=== PATIENT | female | born 1980 | race Caucasian/White ===

== ENCOUNTER 2019-12-07 14:29 | Inpatient (IN) | payer OTHER ==
[~2019-12-07] VITALS: Ht 165.1 cm; Wt 62.3 kg
[2019-12-07 14:41] VITALS: BP 101/68
[2019-12-07 15:07] LABS: BASO % 0.7 % (0.0-1.0); EOS % 0.7 % (1.0-4.0); HEMATOCRIT 40.3 % (37.0-47.0); LYMPH # 0.7 10*3/uL (1.3-4.4); LYMPH % 12.7 % (27.0-41.0); MEAN CELL VOLUME 83.4 fl (81.0-99.0); MEAN CORPUSCULAR HGB 26.7 pg (27.0-31.0); MEAN PLATELET VOLUME 9.5 fl (9.6-12.3); MONO # 0.2 10*3/uL (0.1-1.0); NEUT # 4.7 10*3/uL (2.3-7.9); NEUT % 82.7 % (47.0-73.0); PLATELET COUNT AUTOMATED 391 10*3/uL (130-400); RED BLOOD COUNT 4.83 10*6/uL (4.10-5.10); RED CELL DISTRI WIDTH 15.3 % (0-14.5); WHITE BLOOD COUNT 5.7 10*3/uL (4.8-10.8)
[2019-12-07 15:22] LABS: ALBUMIN 3.5 gm/dl (3.1-4.5); ALKALINE PHOSPHATASE 89 U/L (45-117); BUN 6 mg/dl (7-24); CHLORIDE 111 mmol/L (98-107); POTASSIUM 3.5 mmol/L (3.5-5.1); SGOT/AST 49 IU/L (3-35); SGPT/ALT 53 U/L (12-78); SODIUM 141 mmol/L (136-145); TOTAL PROTEIN 7.3 gm/dL (6.4-8.2)
[2019-12-07 15:30] LABS: ACETAMINOPHEN (TYLENOL) < 5.0 ug/ml (10-30); ETHYL ALCOHOL < 3.0 mg/dl (<3)
--- NOTE | 2019-12-07 15:45 | NUR ---
ALL PATIENTS BELONGINGS WERE SENT WITH SECURITY.
[2019-12-07 15:48] VITALS: BP 107/59
--- NOTE | 2019-12-07 15:48 | NUR ---
39 year old 501 admitted to room # 501 for stabilization. Reports an addiction to HEROIN last used 18 hours prior to admission. Compliant with admission procedure. Patient states she did not use since yesterday however is having difficulty staying awake for interview with nurse. See assessment forms for additional information about patient status.
--- NOTE | 2019-12-07 15:53 | NUR ---
[place] STAFF IN TO SEE PATIENT. PATIENT MEETS [facility]. PATIENT WANTS TO FOLLOW UP WITH [facility] FOR HER AFTERCARE PLAN. GEOVANY SHAHID B.A. INTAKE COOORDINATOR
[2019-12-07 16:00] VITALS: BP 107/59
[2019-12-07 17:05] LABS: BACTERIA 4+; BILIRUBIN 1+ (NEGATIVE); BLOOD 1+ (NEGATIVE); CLARITY CLEAR (CLEAR); COLOR YELLOW (YELLOW); EPITHELIAL CELLS 51-100; GLUCOSE NEGATIVE (NEGATIVE); KETONE 3+ (NEGATIVE); LEUKO ESTERASE TRACE (NEGATIVE); NITRITE NEGATIVE (NEGATIVE); PH 6.5 (5.0-9.0); RBC 0-2 rbc/hpf (0-2); SPECIFIC GRAVITY 1.015 (1.005-1.030); UROBILINOGEN 0.2 E.U./dl (0.2-1.0)
[2019-12-07 17:14] LABS: URINE AMPHETAMINES < 1000 (1000ng/ml); URINE BARBITURATES < 200 (200ng/ml); URINE BENZODIAZEPINES < 200 (200ng/ml); URINE CANNABINOIDS (THC) < 50 (50ng/ml); URINE COCAINE < 300 (300ng/ml); URINE METHADONE < 300 (300ng/ml); URINE OPIATES < 300 (300ng/ml)
[2019-12-07 17:21] LABS: URINE PHENCYCLIDINE < 25 (25ng/ml)
[2019-12-07] MEDS ORDERED: BUSPAR5 MG PO (17:39)
[2019-12-07] MEDS ORDERED: 'CLONIDINE0.1 MG PO (17:39)
[2019-12-07] MEDS ORDERED: ZYRTEC10 M3 PO (17:39)
[2019-12-07] MEDS ORDERED: VISTARIL50 MG PO (17:40)
[2019-12-07] MEDS ORDERED: TRAZODONE50 MG PO (17:41)
[2019-12-07] MEDS ORDERED: ZOLOFT100 MG PO (17:41)
--- NOTE | 2019-12-07 18:08 | NUR ---
PT MEDICATED WITH PO ROBAXIN AND VISTARIL FOR COMPLAINTS OF AGITATION AND MUSCLE ACHES. WILL MONITOR.
--- NOTE | 2019-12-07 18:49 | NUR ---
PT MEDICATED WITH IMODIUM PER ORDER FOR C/O DIARRHEA. WILL MONITOR
[2019-12-07 20:00] VITALS: BP 99/53
--- NOTE | 2019-12-07 20:15 | NUR ---
24 HR chart check completed.
--- NOTE | 2019-12-07 23:20 | NUR ---
Patient displaying withdrawal symptoms, including: irritability, anxiousness, restlessness and agitation. Scheduled/PRN medications provided, SEE EMAR. Will continue to monitor medication effectiveness.
[2019-12-08] VITALS: BP 104/63
--- NOTE | 2019-12-08 | NUR ---
Patient resting. Responding to scheduled medications with fewer complaints of pain and anxiety.
[2019-12-08 04:00] VITALS: BP 100/52
--- NOTE | 2019-12-08 06:00 | NUR ---
Patient resting. Responding to scheduled medications with fewer complaints of pain and anxiety.
[2019-12-08 08:00] VITALS: BP 100/57
--- NOTE | 2019-12-08 08:59 | NUR ---
PATIENT REQUESTED AND RECEIVED PO ROBAXIN AND VISTARIL PER PRN ORDER FOR C/O MUSCLE ACHES AND ANXIETY. WILL MONITOR EFFECTIVENESS.
--- NOTE | 2019-12-08 09:00 | NUR ---
PT REQUESTED PO BENTYL PER PRN ORDER FOR C/O STOMACH CRAMPS. WILL MONITOR EFFECTIVENESS.
--- NOTE | 2019-12-08 09:59 | NUR ---
ROBAXIN AND VISTARIL RELIEVING MUSCLE ACHES AND ANXIETY. WILL CONTINUE TO MONITOR.
--- NOTE | 2019-12-08 10:00 | NUR ---
BENTYL RELIEVING STOMACH CRAMPS. WILL CONTINUE TO MONITOR.
--- NOTE | 2019-12-08 10:59 | NUR ---
PT MEDICATED WITH PO REQUIP PER PRN ORDER FOR C/O RESTLESS LEGS. WILL MONITOR EFFECTIVENESS.
--- NOTE | 2019-12-08 11:59 | NUR ---
REQUIP RELIEVING RESTLESS LEGS AT THIS TIME. WILL CONTINUE TO MONITOR.
[2019-12-08 12:00] VITALS: BP 95/61
--- NOTE | 2019-12-08 13:20 | NUR ---
PT MEDICATED WITH PO MOTRIN PER PRN ORDER FOR C/O MUSCLE ACES/DISCOMFORT. WILL MONITOR EFFECTIVENESS.
--- NOTE | 2019-12-08 14:26 | NUR ---
[place] STAFF IN TO SEE PATIENT. PATIENT WILL BE FOLLWOING UP [facility]. THE FACILITY WILL PROVIDE TRANSPORTATION FOR HER ON November POST DISCHARGE. PATIENT AGREES AND UNDERSTAND HER AFTERCARE PLAN. GEOVANY SHAHID B.A. TIRE MANAGER
--- NOTE | 2019-12-08 14:36 | NUR ---
PATIENT REQUESTING HOME MEDS TO BE ORDERED. MED REC UPDATED PER POLICY. CALLED AT THIS TIME REGARDING HOME MEDICATIONS. AWAITING PHYSICIAN ORDERS.
--- NOTE | 2019-12-08 14:53 | NUR ---
ROBAXIN AND VISTARIL GIVEN PER PRN ORDER FOR C/O MUSCLE ACHES AND ANXIETY. WILL MONITOR EFFECTIVENESS.
--- NOTE | 2019-12-08 15:53 | NUR ---
Patient resting. Responding to scheduled medications with fewer complaints of pain and anxiety.
[2019-12-08 16:00] VITALS: BP 103/67
[2019-12-08 20:00] VITALS: BP 111/71
--- NOTE | 2019-12-08 20:40 | NUR ---
PT RESTING IN BED. C/O ABDOMINAL CRAMPS, MUSCLE ACHES AND ANXIETY. MEDICATED WITH BENTYL, ROBAXIN, VISTARIL, SEE EMAR. ALSO TOLERATED ROUTINE TRAZADONE AND BUSPAR. CALL LIGHT IN REACH.
--- NOTE | 2019-12-08 21:35 | NUR ---
Patient resting. Responding to scheduled medications with fewer complaints of pain and anxiety. CALL LIGHT IN REACH.
--- NOTE | 2019-12-08 23:20 | NUR ---
PT RESTING IN BED WITH EYES CLOSED, AWAKENS EASILY. RESP-EASY AND REGULAR. REFUSED SUBUTEX AT THIS TIME. MEDICATED WITH REQUIP FOR RESTLESS LEGS, SEE EMAR. CALL LIGHT IN REACH.
[2019-12-09] VITALS: BP 101/60
--- NOTE | 2019-12-09 | NUR ---
PT RESTING IN BED WITH EYES CLOSED. RESP-EASY AND REGULAR. CALL LIGHT IN REACH. SEE SHIFT ASSESSMENT.
[2019-12-09 06:00] VITALS: BP 104/68
--- NOTE | 2019-12-09 06:40 | NUR ---
PT RESTING IN BED. RESP-EASY AND REGULAR. TOLERATED ROUTINE MED WITH NO PROBLEM. BP 104/68. CALL LIGHT IN REACH.
[2019-12-09 08:00] VITALS: BP 106/67
--- NOTE | 2019-12-09 08:17 | NUR ---
PT REQUESTED PO ROBAXIN AND VISTARIL PER PRN ORDER FOR C/O MUSCLE ACHES AND ANXIETY. WILL MONITOR EFFECTIVENESS.
--- NOTE | 2019-12-09 08:18 | NUR ---
PT MEDICATED WITH PO MOTRIN PRN ORDER FOR C/O PAIN/DISCOMFORT. RATES PAIN 10/24. WILL MONITOR EFFECTIVENESS.
--- NOTE | 2019-12-09 09:17 | NUR ---
Patient resting. Responding to scheduled medications with fewer complaints of pain and anxiety.
--- NOTE | 2019-12-09 11:52 | NUR ---
REQUIP AND NICOTINE PATCH GIVEN PER PRN ORDER FOR C/O RESTLESS LEGS AND NICOTINE WITHDRAWAL. WILL MONITOR EFFECTIVENESS.
[2019-12-09 12:00] VITALS: BP 112/67
--- NOTE | 2019-12-09 12:52 | NUR ---
REQUIP RELIEVING RESTLESS LEGS PER PT. WILL CONTINUE TO MONITOR.
--- NOTE | 2019-12-09 13:48 | NUR ---
ZOFRAN GIVEN PER PRN ORDER FOR C/O NAUSEA. WILL MONITOR EFFECTIVENESS.
--- NOTE | 2019-12-09 14:20 | NUR ---
ROBAXIN, VISTARIL AND BENTYL GIVEN PER PRN ORDER FOR C/O MUSCLE ACHES, ANXIETY AND STOMACH CRAMPS. WILL MONITOR EFFECTIVENESS OF MEDICATIONS. CALLL LIGHT WITHIN REACH.
--- NOTE | 2019-12-09 14:48 | NUR ---
ZOFRAN RELIEVING NAUSEA PER PT. WILL CONTINUE TO MONITOR.
--- NOTE | 2019-12-09 15:20 | NUR ---
Patient resting. Responding to scheduled medications with fewer complaints of pain and anxiety.
[2019-12-09 16:00] VITALS: BP 113/68
[2019-12-09 20:00] VITALS: BP 111/74
--- NOTE | 2019-12-09 20:00 | NUR ---
IN TO ASSESS PATIENT, PATIENT PLEASANT AND COOPERATIVE WITH ASSESSMENT. STATES SHE DOESN'T WANT TO TAKE ANYMORE SUBUTEX BECAUSE SHE EVENTUALLY WITHDRAWALS OFF THAT AND WOULD RATHER JUST HAVE HER SYMPTOMS MANAGED. PATIENT COMPLAINTS OF ACHENESS AND ANXIETY OFF AND ON AND STATES SHE IS HAVING SOME LOOSE STOOLS. OTHERWISE PATIENT DENIES ANY OTHER PROBLEMS. BREATHING IS EASY AND REGULAR ON ROOM AIR, DENIES CP/SOB, DENIES N/V/C. NO EDEMA NOTED. CALL LIGHT WITHIN REACH, WILL MONITOR
--- NOTE | 2019-12-09 20:11 | NUR ---
PRN MOTRIN GIVEN FOR PT COMPLAINTS OF GENERALIZED ACHES AND DISCOMFORT. CALL LIGHT WITHIN REACH, WILL MONITOR
--- NOTE | 2019-12-09 21:08 | NUR ---
PRN ROBAXIN, NICOTROL INHALER AND VISTARIL GIVEN FOR PT COMPLAINTS OF MUSCLE ACHES, URGE TO SMOKE AND ANXIETY. CALL LIGHT WITHIN REACH, WILL MONITOR
--- NOTE | 2019-12-09 21:10 | NUR ---
PRN IMMODIUM GIVEN FOR PATIENT COMPLAINTS OF LOOSE STOOLS. CALL LIGHT WITHIN REACH, WILL MONITOR
--- NOTE | 2019-12-09 22:00 | NUR ---
PRN MEDICATION EFFECTIVE PER PT
--- NOTE | 2019-12-09 23:22 | NUR ---
24 HR chart check completed.
[2019-12-10] VITALS: BP 93/51
--- NOTE | 2019-12-10 01:02 | NUR ---
PATIENT SLEEPING. BREATHING IS EASY AND REGULAR. CALLL LIGHT WITHIN REACH, WILL MONTIOR
--- NOTE | 2019-12-10 05:30 | NUR ---
PATIENT STATES SHE HAD NO MORE LOOSE STOOLS THROUGHOUT THE NIGHT. PRN IMMODIUM EFFECTIVE
[2019-12-10 08:00] VITALS: BP 102/74
--- NOTE | 2019-12-10 08:35 | NUR ---
PT MEDICATED WITH MOTRIN, ROBAXIN, AND ZOFRAN AT THIS TIME FOR COMPLAINTS OF MUSCLE ACHES AND NAUSEA. WILL MONITOR.
--- NOTE | 2019-12-10 09:35 | NUR ---
PER PT, MEDICATION EFFECTIVE.
--- NOTE | 2019-12-10 09:49 | NUR ---
PT MEDICATED WITH VISTARIL UPON REQUEST FOR COMPLAINTS OF ANMXIETY. WILL MONITOR.
--- NOTE | 2019-12-10 10:49 | NUR ---
PER PT, MEDICATION HAS BEEN EFFECTIVE. MORE RELAXED AT THIS TIME.
--- NOTE | 2019-12-10 11:33 | NUR ---
PT MEDICATED WITH REQUIP AT THIS TIME FOR COMPLAINTS OF RESTLESS LEG SYNDROME. WILL MONITOR.
[2019-12-10 12:00] VITALS: BP 102/60
--- NOTE | 2019-12-10 12:33 | NUR ---
PER PATIENT, REQUIP HAS BEEN EFFECIVE AT THIS TIME.
--- NOTE | 2019-12-10 14:17 | NUR ---
PT MEDICATED WITH ZOFRAN, VISTARIL, ROBAXIN, AND IMODIUM AT THIS TIME FOR COMPLAINTS OF NAUSEA, AGITATION, DIARRHEA, AND MUSCLE ACHES. WILL MONITOR FOR EFFECTIVENESS.
--- NOTE | 2019-12-10 15:17 | NUR ---
PER PATIENT, PRN MEDICATION HAS BEEN EFFECTIVE. RESTING AT THIS TIME.
[2019-12-10 16:00] VITALS: BP 102/62
[2019-12-10 20:00] VITALS: BP 131/65
--- NOTE | 2019-12-10 20:30 | NUR ---
IN TO ASSESS PATIENT. PATIENT PLEASANT AND COOPERATIVE. DENIES ANY ISSUES BESIDES NAUSEA OFF/ON AT THIS TIME. DENIES ANY MORE DIARRHEA AFTER DOSES OF IMMODIUM EARLIER. PATIENT AWARE OF DISCHARGE PLAN TOMORROW. CALL LIGHT WITHIN REACH, WILL MONITOR
--- NOTE | 2019-12-10 21:15 | NUR ---
PRN ROBAXIN, MOTRIN, VISTARIL AND ZOFRAN GIVEN FOR PT COMPLAINTS OF MUSCLE ACHES/DISCOMFORT, NAUSEA AND ANXIETY. CALL LIGHT WITHIN REACH, WILL MONITOR
--- NOTE | 2019-12-10 22:15 | NUR ---
PRN MEDICATION APPEARS EFFECTIVE, PT SLEEPING
[2019-12-10 23:57] VITALS: BP 104/69
--- NOTE | 2019-12-11 02:37 | NUR ---
PATIENT CONTINUES TO SLEEP. NO DISTRESS NOTED. CALL LIGHT WITHIN REACH, ALMAZ BUSBY
--- NOTE | 2019-12-11 04:15 | NUR ---
24 HR chart check completed.
[2019-12-11 06:49] LABS: BASO % 0.6 % (0.0-1.0); EOS # 0.2 10*3/uL (0.0-0.4); EOS % 3.6 % (1.0-4.0); HEMATOCRIT 36.7 % (37.0-47.0); LYMPH # 2.7 10*3/uL (1.3-4.4); MEAN CELL VOLUME 87.2 fl (81.0-99.0); MEAN CORPUSCULAR HGB 26.8 pg (27.0-31.0); MEAN CORPUSCULAR HGB CONC 30.8 g/dl (33.0-37.0); MEAN PLATELET VOLUME 10.4 fl (9.6-12.3); MONO # 0.4 10*3/uL (0.1-1.0); MONO % 5.2 % (3.0-9.0); NEUT # 3.4 10*3/uL (2.3-7.9); NEUT % 50.2 % (47.0-73.0); PLATELET COUNT AUTOMATED 326 10*3/uL (130-400); RED BLOOD COUNT 4.21 10*6/uL (4.10-5.10); RED CELL DISTRI WIDTH 15.7 % (0-14.5); WHITE BLOOD COUNT 6.7 10*3/uL (4.8-10.8)
[2019-12-11 07:11] LABS: CREATININE 0.66 mg/dL (0.55-1.02)
[2019-12-11 08:00] VITALS: BP 100/56
[2019-12-11] MEDS ORDERED: VISTARIL50 MG PO (10:31)
[2019-12-11] MEDS ORDERED: ROPINIROLE HYD0.5 MG PO (10:31)
[2019-12-11] MEDS ORDERED: ZOFRAN 4 MG ED2 TAB PO (10:31)
--- NOTE | 2019-12-11 11:00 | NUR ---
Discharge instructions reviewed with patient/family. Patient receptive and verbalizes understanding. Follow-up care arranged. Written instructions given to patient/family. PATIENT AMBULATORY OFF FLOOR. BELONGINGS OBTAINED FROM SECURITY. PICKED UP BY NICK SULLIVAN
[2019-12-12 09:10] LABS: HEP B CORE AB, IGM Negative (Negative); HEPATITIS B SURFACE AG Negative (Negative)
[2019-12-13 10:12] LABS: HEPATITIS C VIRUS ANTIBODY >11.0 s/co (0.0-0.9)
== END 2019-12-11 11:00 | disposition home or self-care (01) | DRG 773 ==
LOC: ED 14:29 → 5E 15:25 → EDHOLD 15:25 → 5E 15:34
PROVIDERS: Nurse Practitioner Family; Student in an Organized Health Care Education/Training Program; ADMIT Family Medicine
DX: F11.23 Opioid dependence with withdrawal (principal); F41.9 Anxiety disorder, unspecified; E87.8 Other disorders of electrolyte and fluid balance, not elsewhere classified; R73.9 Hyperglycemia, unspecified; B19.20 Unspecified viral hepatitis C without hepatic coma; F17.210 Nicotine dependence, cigarettes, uncomplicated; R74.0 Nonspecific elevation of levels of transaminase and lactic acid dehydrogenase [LDH]; Z71.6 Tobacco abuse counseling; Z79.899 Other long term (current) drug therapy